=== PATIENT | female | born 1985 | race Caucasian/White ===

== ENCOUNTER 2016-10-23 11:47 | Emergency (ER) | payer OTHER ==
[~2016-10-23] VITALS: Ht 152.4 cm; Wt 105.1 kg
[~2016-10-23 11:47] MED LIST: ALEVE220 MG PO; AMOX TR-K CLV1 EAC4 PO; ASPIR 8181 M1 PO; BIOTIN10000 MC1 PO; CEFTIN250 MG PO; CELEBREX200 MG PO; CIPRO500 MG PO; DAILY MULTIPLE1 EAC2 PO; DILAUDID2 MG PO; ELMIRON100 MG PO; GLUCOPHAGE500 MG PO; HYDROCODON-ACE1 EAC7 PO; HYDROMORPHONE HC2 MG PO; IBUPROFEN; IMITREX100 MG PO; INDOCIN25 MG PO; KEFLEX500 MG PO; LEXAPRO10 MG PO; LEXAPRO20 MG PO; MACROBID100 MG PO; MELATONIN10 M1 PO; MELATONIN10 M2 PO; MELOXICAM15 MG PO; METFORMIN PO; MOTRIN800 MG PO; NEURONTIN300 MG PO; NEXIUM40 MG PO; NORCO 7.5/321 TABLET PO; OCELLA TABLET1 EACH PO; PERCOCET 5/31 TABLET PO; PRILOSEC40 MG PO; PROTONIX40 MG PO; REGLAN10 MG PO; SKELAXIN800 MG PO; TYLENOL EXTRA500 MG PO; TYLENOL REGULA325 MG PO; ZOFRAN ODT4 MG PO; ZOFRAN4 MG PO
[2016-10-23 13:04] LABS: HEMATOCRIT 43.9 % (36.0-46.0); MCH 29.3 PG (29.0-34.0); MCHC 33.3 G/DL (30.0-36.0); MEAN PLAT.VOLUME 9.7 uM^3 (9.5-12.4); PLATELET COUNT 314 K/uL (156-360); RBC DIS.WIDTH-SD 38.2 % (39-53); RED BLOOD COUNT 4.99 M/uL (3.80-5.20); WHITE BLOOD COUNT 9.6 K/uL (4.1-10.2)
[2016-10-23 13:09] LABS: CHLORIDE 105 mEq/L (99-109); POTASSIUM 4.8 mEq/L (3.7-5.4); SODIUM 141 mEq/L (136-147)
[2016-10-23 13:11] LABS: GLUCOSE 95 mg/dL (70-99)
[2016-10-23 13:12] LABS: ANION GAP 9 MEQ/L (2-14)
[2016-10-23 13:13] LABS: TOTAL BILIRUBIN 0.2 mg/dL (0.0-1.0)
[2016-10-23 13:14] LABS: ALKALINE PHOSPHATASE 61 IU/L (3-129)
[2016-10-23 13:15] LABS: GFR ESTIMATE (CALCULATED) > 59 mL/min/
[2016-10-23 13:16] LABS: UREA NITROGEN (BUN) 7 mg/dL (9-23)
[2016-10-23 13:18] LABS: LIPASE 26 U/L (1.0-51.0)
[2016-10-23] MEDS ORDERED: OMEPRAZOLE20 M2 PO (13:21)
[2016-10-23 13:28] LABS: QUANTITATIVE HCG < 4.0 MIU/ML
[2016-10-23 13:48] LABS: BILIRUBIN NEGATIVE; BLOOD NEGATIVE; COLOR YELLOW ((YELLOW)); GLUCOSE (STRIP) NEGATIVE; KETONES NEGATIVE; LEUKOCYTES NEGATIVE; NITRITE NEGATIVE; PROTEIN (STRIP) NEGATIVE; SPECIFIC GRAVITY 1.009 (1.000-1.030); UROBILINOGEN 0.2 MG/DL (0.2-1.0)
[2016-10-23 13:52] LABS: ADD MIUA? NO; UCUL ADDED? NO
[2016-10-23] MEDS ORDERED: TRAMADOL HCL50 MG PO (14:32)
[2016-10-23] MEDS ORDERED: DEXILANT30 MG PO (14:39)
[2016-10-23 14:42] VITALS: BP 136/100
== END 2016-10-23 14:43 | disposition home or self-care (01) ==
LOC: EME 11:47
DX: R10.10 Upper abdominal pain, unspecified (principal); R11.2 Nausea with vomiting, unspecified; R19.7 Diarrhea, unspecified; E11.9 Type 2 diabetes mellitus without complications; K21.9 Gastro-esophageal reflux disease without esophagitis; F17.200 Nicotine dependence, unspecified, uncomplicated
CPT/HCPCS: 80053; 81003; 83690; 84702; 85027; 99281; 99284

== ENCOUNTER → 2016-11-27 | Outpatient (CLI) | payer OTHER ==
[~2016-11-27] MED LIST changes: +DEXILANT30 MG PO; +OMEPRAZOLE20 M2 PO; +TRAMADOL HCL50 MG PO
== END | disposition home or self-care (01) ==
LOC: NUC 11-25 08:30
DX: R10.13 Epigastric pain (principal); R11.0 Nausea
CPT/HCPCS: 78264; A9541

== ENCOUNTER 2017-04-03 07:43 | Emergency (ER) | payer OTHER ==
[~2017-04-03] VITALS: Ht 152.4 cm; Wt 110.0 kg
[2017-04-03] MEDS ORDERED: PEN-VEE K,VEET500 MG PO (09:04)
[2017-04-03] MEDS ORDERED: TRAMADOL HCL50 MG PO (09:04)
[2017-04-03 09:27] VITALS: BP 130/88
== END 2017-04-03 09:29 | disposition home or self-care (01) ==
LOC: EME 07:43
PROC: 3E0T3BZ Introduction of Anesthetic Agent into Peripheral Nerves and Plexi, Percutaneous Approach (ICD-10-PCS; principal; 2017-04-03)
DX: S02.5XXA Fracture of tooth (traumatic), initial encounter for closed fracture (principal); K08.89 Other specified disorders of teeth and supporting structures; E11.9 Type 2 diabetes mellitus without complications; K21.9 Gastro-esophageal reflux disease without esophagitis; G43.909 Migraine, unspecified, not intractable, without status migrainosus; F41.9 Anxiety disorder, unspecified; F17.200 Nicotine dependence, unspecified, uncomplicated; Z88.5 Allergy status to narcotic agent; Z88.1 Allergy status to other antibiotic agents; Z88.6 Allergy status to analgesic agent; Z91.040 Latex allergy status
CPT/HCPCS: 99281; 99284; S0020

== ENCOUNTER 2017-08-22 22:43 | Emergency (ER) | payer OTHER ==
[~2017-08-22] VITALS: Ht 152.4 cm; Wt 110.4 kg
[~2017-08-22 22:43] MED LIST changes: +PEN-VEE K,VEET500 MG PO
[2017-08-22] MEDS ORDERED: TRAMADOL HCL50 MG PO (23:42)
[2017-08-22] MEDS ORDERED: PEN-VEE K,VEET500 MG PO (23:42)
[2017-08-23 00:07] VITALS: BP 156/78
== END 2017-08-23 00:08 | disposition home or self-care (01) ==
LOC: EME 22:43
DX: K04.7 Periapical abscess without sinus (principal); Z88.5 Allergy status to narcotic agent; Z91.040 Latex allergy status; Z88.6 Allergy status to analgesic agent
CPT/HCPCS: 99281; 99284; J1885